=== PATIENT | female | born 1980 | race Hispanic/Latino ===

== ENCOUNTER 2020-10-02 07:14 | Emergency (ER) | payer OTHER ==
[~2020-10-02] VITALS: Ht 172.7 cm; Wt 90.7 kg
--- NOTE | 2020-10-02 09:10 | EKG ---
[facility] [address] [place], [place] [address] \T\ T wave abnormality, consider inferolateral ischemia Abnormal ECG No previous ECGs available Confirmed by DOROTHEA BIAG MD ([id number]) on 10/02/2020 9:10:10 AM Electronically Signed By: DOROTHEA BAIG MD 10/02/20 0910 PATIENT NAME: TRAUMA,CONSUELO Electrocardiogram DATE OF : [id number] PHYSICIAN: DOROTHEA BAIG MD REPORT #: [id number] REPORT IS CONFIDENTIAL AND NOT TO BE RELEASED WITHOUT AUTHORIZATION
[2020-10-02] MEDS ORDERED: ATIVAN1 MG PO (09:40)
[2020-10-02] MEDS ORDERED: NAPROSYN500 MG PO (09:40)
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
== END 2020-10-02 10:11 | disposition home or self-care (01) ==
LOC: ED 07:14 → EDBD 07:15 → ED 10:11
DX: S40.011A Contusion of right shoulder, initial encounter (principal); V43.63XA Car passenger injured in collision with pick-up truck in traffic accident, initial encounter
CPT/HCPCS: 70450; 70470; 72125; 73030; 73552; 73590; 80053; 81001; 83605; 83690; 84484; 84703; 85025; 93005; 93010; 96374; 96375; 96376; 99284-25; J2060; J2405